=== PATIENT | male | born 1925 | race Caucasian/White ===

== ENCOUNTER 2017-02-18 10:12 | Inpatient (IN) | payer MEDICARE ==
[~2017-02-18] VITALS: Ht 175.3 cm; Wt 75.8 kg
--- NOTE | ~2017-02-18 | EC ---
PATIENT:KRZYSZTOF DAO DATE OF SERVICE: 02/18/17 SEX: M MEDICAL RECORD: [id number] DATE OF : [birth year] LOCATION:[facility] AGE OF PATIENT: 89 ADMISSION DATE: 02/18/17 REFERRING PHYSICIAN: INTERPRETING PHYSICIAN: SAQIB CRAVEN MD ECHOCARDIOGRAM REPORT ECHO CHARGES 4 ECHO COMPLETE CLINICAL DIAGNOSIS: ABNORMAL EKG ECHOCARDIOGRAPHIC MEASUREMENTS (adult normal given) AC root (d.<3.7cm) 3.3 cm LV Septum d (<1.2 cm> 0.9 cm Valve Excursion 1.9 cm LV Septum (systole) 1.7 cm Left Atria (s.<4.0cm> 3.6 cm LVPW d(<1.2cm) 1.0 cm RV (d.<2.3cm) 2.2 cm LVPW (sytole) 1.8 cm LV diastole(<5.6CM) 5.1 cm MV E-F(>70mm/sec) cm LV systole 3.5 cm LVOT Diameter 1.7 cm MV exc.(>10mm) cm Est.ejection fraction (50-75%) % Pericardial Effusion N DOPPLER: LVIT cm/sec A 83.0 cm/sec E 62.0 cm/sec LA cm/sec RVSP 29.0 mmHg LVOT 97.0 cm/sec AOP1/2T m/s Asc. Ao 144 cm/sec RVOT 75.0 cm/sec RA cm/sec PA 97.0 cm/sec AV Gradient Peak 8.3 mmHg AV Mean 3.6 mmHg AV Area 1.4 cm MV Gradient Peak 4.7 mmHg MV Mean 1.5 mmHg MV Area cm COMMENTS: Truck Body Repairer: Dania LAMOE Civil Engineering Project Designer: 4 Dr. Craven TAPE# PACS DATE OF SERVICE: 02/19/2017 PROCEDURE: Transthoracic echocardiogram. FINDINGS: 1. Overall imaging quality is poor, somewhat qualitative than quantitative. 2. The left ventricle is grossly normal. There appears to be left ventricular hypertrophy with inflow characteristics consistent with diastolic dysfunction. 3. Mitral valve is not well visualized, but appears to be grossly normal. 4. Tricuspid valve has moderate tricuspid regurgitation with normal RVSP. ECHOCARDIOGRAM REPORT [id number] KRZYSZTOF DAO 5. The pulmonic valve is not well visualized, but grossly normal. 6. The right atrium and right ventricle appear to be normal. IMPRESSION: The patient has evidence of hypertensive heart disease with preserved LV systolic function. Ejection fraction at least 55%. TRANSINT:[id number] Voice Confirmation ID: [id number] DOCUMENT ID: [id number] 02/28/2017 Edited to correct date of service, dmm. SAQIB CRAVEN MD at 1522 CC: [id number] DICTATION DATE: 02/20/17 0851 PIECE GOODS PACKER: 02/20/17 1247 DIS IN 02/25/17 [id number] [place] [address]
--- NOTE | ~2017-02-18 | CN ---
PATIENT NAME:KRZYSZTOF DAO MEDICAL RECORD: [id number] : [birth year] LOCATION:[facility] ADMIT DATE: 02/18/17 ACCOUNT: [id number] CONSULTING PHYSICIAN: IVANA ABAD DO REFERRING PHYSICIAN: REBEKA MARIN MD DATE OF CONSULTATION: 02/19/2017 HISTORY OF PRESENT ILLNESS: An 89-year-old male presented to the Emergency Room after multiple falls, found to have a left femur fracture, admitted to orthopedics consult for medical management. PAST MEDICAL HISTORY: Significant for hypertension, hypothyroidism. CURRENT MEDICATIONS: Lisinopril 2.5 mg daily and levothyroxine 50 mcg daily. ALLERGIES: No known drug allergies. PRIMARY CARE PHYSICIAN: The patient's primary care physician is in [place]. SOCIAL HISTORY: He lives between [facility]. Lives alone, will need inpatient rehab at some facility if he able to go back home. Limited historian. Some family members present. Does admit frequent falls. Denies any loss of consciousness. REVIEW OF SYSTEMS: CARDIOVASCULAR: Denies chest pain, denies palpitations. PULMONARY: Denies hemoptysis, denies night sweats. GASTROINTESTINAL: Denies hematemesis, hematochezia or melena. GENITOURINARY: Denies dysuria. MUSCULOSKELETAL: Frequent falls, known left femur fracture. PHYSICAL EXAMINATION: VITAL SIGNS: Blood pressure is 109/64, temperature 98.1, heart rate 94, respirations 20, O2 sats 97%. GENERAL: The patient is alert to person, limited historian. The pain appears well controlled. HEENT: Head is normocephalic, atraumatic. Eyes: Pupils equal, round, reactive to light and accommodation. Extraocular muscles intact. Conjunctiva was not injected. Ears: Canals patent, TMs are intact. Nose: Nares patent without drainage. Throat: No erythema, no exudates. NECK: Supple. No lymphadenopathy, no JVD. HEART: Regular rate and rhythm. No S3, S4, no rub. LUNGS: Clear to auscultation bilaterally. Breathing sound labored. ABDOMEN: Soft, nontender. Bowel sounds all 4 quadrants. EXTREMITIES: Present times 4. Appropriate edema with acute femur fracture. NEUROLOGIC: No appreciable focal deficits. Limited exam with pain medications on board. LABORATORY DATA AND DIAGNOSTIC DATA: EKG shows accelerated junctional rhythm, nonspecific ST-T wave changes. Ventricular rate of 91. CBC: White count 7.7, hemoglobin 9.2, hematocrit 26.5, platelets 180. Chemistry shows a sodium of 136, potassium 3.4, chloride 103, bicarbonate 24.1, BUN 27, creatinine 0.8, glucose 121. AST 96, ALT 39, alkaline phosphatase 30. Lactic acid, borderline elevated at 2.7. Influenza A and B negative. Urinalysis; yellow, clear, trace protein, small ketones, 1+ blood, nitrites negative, 5-10 wbc's per high powered CONSULT REPORT [id number] KRZYSZTOF DAO, moderate bacteria. INR is 1.09. CK is elevated at 6593, CK-MB 40, troponin less than 0.017, proBNP is 1116. Left femur x-ray; moderately displaced, minimally angulated, mildly overriding acute fracture, distal left femoral metadiaphysis with soft tissue swelling, bilaterally arthroplasties. CT is basically whole body; head, neck, pelvis, thoracic, no acute pathology. Blood cultures pending. ASSESSMENT AND PLAN: 1. Left femur fracture, anticipate open reduction internal fixation, presently scheduled for 02/20/2017 in a.m. 2. Urinary tract infection. Rocephin 1 gm daily, culture urine. 3. Mild rhabdomyolysis. Cautious IV hydration and monitor. 4. Age deconditioning. We will obtain echocardiogram. Also, consult case management. The patient will need inpatient rehabilitation and possible group home placement after stabilization. 4. Osteopenia. Check vitamin D level. Empiric vitamin D 2000 units daily. TRANSINT:[id number] Voice Confirmation ID: [id number] DOCUMENT ID: [id number] IVANA ABAD DO at 0743 CC: [id number] DICTATION DATE: 02/19/17 0756 DESIGN CONSULTANT: 02/19/17 1110 ADM IN [facility] [address] [place] [address]
[2017-02-18 11:25] LABS: INR 1.09 (0.85-1.17); PROTIME 13.7 SECONDS (11.6-15.0)
[2017-02-18 11:34] LABS: ALBUMIN 3.6 g/dL (3.4-5.0); ALKALINE PHOSPHATASE 44 U/L (46-116); ALT (SGPT) 49 U/L (10-68); BILIRUBIN - TOTAL 4.23 mg/dL (0.2-1.3); CALC OSMOLALITY 279 mosm/kg (275-300); CALCIUM 9.7 mg/dL (8.5-10.1); CARBON DIOXIDE 23.7 mmol/L (21.0-32.0); CHLORIDE - SERUM 98 mmol/L (98-107); CREATININE - SERUM 1.2 mg/dL (0.6-1.3); GLUCOSE 133 mg/dL (74-106); PROTEIN - SERUM 6.9 g/dL (6.4-8.2); SODIUM 137 mmol/L (136-145); UREA NITROGEN 25 mg/dL (7-18); eGFR NON AFRICAN AMERICAN 61 mL/min (90-120)
[2017-02-18 11:46] LABS: PRO BNP 1116 pg/mL (0-450)
[2017-02-18 11:48] LABS: CREATINE KINASE 6593 UL (21-232); TROPONIN-I < 0.017 ng/mL (0.000-0.060)
[2017-02-18 13:19] LABS: APPEARANCE CLEAR (CLEAR); COLOR DK YELLOW (YELLOW)
[2017-02-18 13:20] LABS: KETONE SMALL mg/dL (NEGATIVE); PROTEIN TRACE mg/dL (NEGATIVE); RED CELLS - URINE 0-5 /hpf (0-5)
[2017-02-18 13:21] LABS: BACTERIA MODERATE /hpf (NONE SEEN); EPITHELIAL CELLS 0-5 /hpf (0-5); MUCUS >1+ /lpf (NONE SEEN)
[2017-02-18 13:25] LABS: BILIRUBIN NEGATIVE (NEGATIVE); GLUCOSE NEGATIVE (NEGATIVE); NITRITE NEGATIVE (NEGATIVE); UROBILINOGEN NORMAL (NORMAL)
[2017-02-18 18:05] VITALS: BMI 24.7
[2017-02-18] MEDS ORDERED: LEVOTHYROXINE50 MCG PO (18:25)
[2017-02-18] MEDS ORDERED: LISINOPRIL2.5 MG PO (18:26)
[2017-02-18 19:00] VITALS: BP 144/53
[2017-02-18 22:57] VITALS: BP 119/64
[2017-02-19 00:56] VITALS: BP 109/64
[2017-02-19 04:00] VITALS: BP 105/52
[2017-02-19 05:44] LABS: BASOPHILS 0 % (0-2); EOSINOPHILS 0 % (0-7); HEMATOCRIT 26.5 % (42.0-54.0); HEMOGLOBIN 9.2 g/dL (13.5-17.5); IMMATURE GRANULOCYTES 0.1 % (0-5); LYMPHOCYTES 10.4 % (15-50); MCH 33.8 pg (26.0-34.0); MCHC 34.7 g/dL (31.0-37.0); MCV 97.4 fL (80.0-100.0); MEAN PLATELET VOLUME 9.7 fL (7.4-10.4); NEUTROPHILS 74.5 % (40-80); PLATELET COUNT 180 10x3/uL (130-400); RBC 2.72 10x6/uL (4.20-6.10); RDW 13.2 % (11.5-14.5); WBC 7.7 10x3/uL (4.8-10.8)
[2017-02-19 06:37] LABS: ALBUMIN 2.7 g/dL (3.4-5.0); ALKALINE PHOSPHATASE 30 U/L (46-116); ALT (SGPT) 39 U/L (10-68); BILIRUBIN - TOTAL 2.61 mg/dL (0.2-1.3); CALC OSMOLALITY 277 mosm/kg (275-300); CALCIUM 8.5 mg/dL (8.5-10.1); CARBON DIOXIDE 24.1 mmol/L (21.0-32.0); CHLORIDE - SERUM 103 mmol/L (98-107); GLUCOSE 121 mg/dL (74-106); POTASSIUM - SERUM 3.4 mmol/L (3.5-5.1); PROTEIN - SERUM 5.5 g/dL (6.4-8.2); SODIUM 136 mmol/L (136-145); UREA NITROGEN 27 mg/dL (7-18)
[2017-02-19 06:41] LABS: CREATININE - SERUM 0.8 mg/dL (0.6-1.3); eGFR NON AFRICAN AMERICAN > 90 mL/min (90-120)
[2017-02-19 08:16] VITALS: BP 105/57
[2017-02-19 12:45] VITALS: BP 144/55
[2017-02-19 12:54] VITALS: Ht 175.3 cm; Wt 75.8 kg
[2017-02-19 16:45] VITALS: BP 107/53
[2017-02-19 20:00] VITALS: BP 91/49
[2017-02-20] VITALS (7 sets, daily range): BP systolic 99–130; BP diastolic 45–79
[2017-02-20 05:12] LABS: BASOPHILS 0 % (0-2); EOSINOPHILS 0.1 % (0-7); HEMATOCRIT 23.3 % (42.0-54.0); HEMOGLOBIN 7.8 g/dL (13.5-17.5); IMMATURE GRANULOCYTES 0.1 % (0-5); LYMPHOCYTES 13.6 % (15-50); MCH 33.3 pg (26.0-34.0); MCHC 33.5 g/dL (31.0-37.0); MEAN PLATELET VOLUME 9.4 fL (7.4-10.4); MONOCYTES 14.1 % (2-11); NEUTROPHILS 72.1 % (40-80); PLATELET COUNT 191 10x3/uL (130-400); RBC 2.34 10x6/uL (4.20-6.10); RDW 13.4 % (11.5-14.5); WBC 7.4 10x3/uL (4.8-10.8)
[2017-02-20 05:14] LABS: MCV 99.6 fL (80.0-100.0)
[2017-02-20 05:49] LABS: CALC OSMOLALITY 290 mosm/kg (275-300); CALCIUM 8.2 mg/dL (8.5-10.1); CARBON DIOXIDE 26.6 mmol/L (21.0-32.0); CHLORIDE - SERUM 108 mmol/L (98-107); CREATININE - SERUM 0.7 mg/dL (0.6-1.3); GLUCOSE 114 mg/dL (74-106); MAGNESIUM - SERUM 1.6 mg/dL (1.8-2.4); POTASSIUM - SERUM 3.6 mmol/L (3.5-5.1); SODIUM 144 mmol/L (136-145); UREA NITROGEN 22 mg/dL (7-18); eGFR NON AFRICAN AMERICAN > 90 mL/min (90-120)
[2017-02-20 05:53] LABS: CREATINE KINASE 1222 UL (21-232)
[2017-02-20 05:54] LABS: CKMB 2.6 U/L (0.0-3.6)
[2017-02-20 07:43] LABS: APTT 25.8 SECONDS (22.8-39.4); INR 1.05 (0.85-1.17); PROTIME 13.3 SECONDS (11.6-15.0)
[2017-02-21] VITALS: BP 120/55
[2017-02-21 03:54] LABS: BASOPHILS 0 % (0-2); EOSINOPHILS 0 % (0-7); HEMATOCRIT 24.8 % (42.0-54.0); HEMOGLOBIN 8.2 g/dL (13.5-17.5); IMMATURE GRANULOCYTES 0.1 % (0-5); LYMPHOCYTES 5.6 % (15-50); MCH 32.4 pg (26.0-34.0); MCHC 33.1 g/dL (31.0-37.0); MEAN PLATELET VOLUME 9.1 fL (7.4-10.4); MONOCYTES 20.5 % (2-11); NEUTROPHILS 73.8 % (40-80); PLATELET COUNT 185 10x3/uL (130-400); RBC 2.53 10x6/uL (4.20-6.10); RDW 15.3 % (11.5-14.5); WBC 6.9 10x3/uL (4.8-10.8)
[2017-02-21 04:09] LABS: APTT 26.4 SECONDS (22.8-39.4); INR 1.13 (0.85-1.17); PROTIME 14.1 SECONDS (11.6-15.0)
[2017-02-21 04:36] LABS: CALC OSMOLALITY 286 mosm/kg (275-300); CALCIUM 7.9 mg/dL (8.5-10.1); CARBON DIOXIDE 26.3 mmol/L (21.0-32.0); CHLORIDE - SERUM 108 mmol/L (98-107); CREATINE KINASE 1311 UL (21-232); CREATININE - SERUM 0.7 mg/dL (0.6-1.3); GLUCOSE 110 mg/dL (74-106); POTASSIUM - SERUM 3.6 mmol/L (3.5-5.1); SODIUM 143 mmol/L (136-145); UREA NITROGEN 16 mg/dL (7-18); eGFR NON AFRICAN AMERICAN > 90 mL/min (90-120)
[2017-02-21 08:17] VITALS: BP 107/46
[2017-02-21 11:47] VITALS: BP 109/51
[2017-02-21 17:21] VITALS: BP 111/54
[2017-02-21 20:00] VITALS: BP 99/46
[2017-02-22] VITALS (7 sets, daily range): BP systolic 103–119; BP diastolic 47–60
[2017-02-22 04:55] LABS: BASOPHILS 0 % (0-2); EOSINOPHILS 0.2 % (0-7); HEMATOCRIT 27.4 % (42.0-54.0); HEMOGLOBIN 9.1 g/dL (13.5-17.5); IMMATURE GRANULOCYTES 0.2 % (0-5); LYMPHOCYTES 8.7 % (15-50); MCH 31.9 pg (26.0-34.0); MCHC 33.2 g/dL (31.0-37.0); MCV 96.1 fL (80.0-100.0); MEAN PLATELET VOLUME 9.4 fL (7.4-10.4); MONOCYTES 18.3 % (2-11); NEUTROPHILS 72.6 % (40-80); PLATELET COUNT 195 10x3/uL (130-400); RBC 2.85 10x6/uL (4.20-6.10); RDW 16.4 % (11.5-14.5); WBC 8.5 10x3/uL (4.8-10.8)
[2017-02-22 05:12] LABS: CALC OSMOLALITY 276 mosm/kg (275-300); CALCIUM 7.9 mg/dL (8.5-10.1); CARBON DIOXIDE 25.9 mmol/L (21.0-32.0); CHLORIDE - SERUM 103 mmol/L (98-107); CREATININE - SERUM 0.7 mg/dL (0.6-1.3); GLUCOSE 92 mg/dL (74-106); POTASSIUM - SERUM 3.5 mmol/L (3.5-5.1); SODIUM 138 mmol/L (136-145); UREA NITROGEN 14 mg/dL (7-18); eGFR NON AFRICAN AMERICAN > 90 mL/min (90-120)
[2017-02-23 04:00] VITALS: BP 109/55
[2017-02-23 04:41] LABS: BASOPHILS 0 % (0-2); HEMATOCRIT 26.4 % (42.0-54.0); HEMOGLOBIN 8.8 g/dL (13.5-17.5); IMMATURE GRANULOCYTES 0.5 % (0-5); LYMPHOCYTES 7.9 % (15-50); MCH 32.1 pg (26.0-34.0); MCHC 33.3 g/dL (31.0-37.0); MCV 96.4 fL (80.0-100.0); MEAN PLATELET VOLUME 9.2 fL (7.4-10.4); MONOCYTES 16.9 % (2-11); NEUTROPHILS 73.7 % (40-80); PLATELET COUNT 231 10x3/uL (130-400); RBC 2.74 10x6/uL (4.20-6.10); RDW 15.4 % (11.5-14.5); WBC 7.8 10x3/uL (4.8-10.8)
[2017-02-23 04:56] LABS: CALC OSMOLALITY 278 mosm/kg (275-300); CALCIUM 7.8 mg/dL (8.5-10.1); CARBON DIOXIDE 25.1 mmol/L (21.0-32.0); CHLORIDE - SERUM 105 mmol/L (98-107); CREATININE - SERUM 0.6 mg/dL (0.6-1.3); GLUCOSE 100 mg/dL (74-106); POTASSIUM - SERUM 3.6 mmol/L (3.5-5.1); SODIUM 139 mmol/L (136-145); UREA NITROGEN 14 mg/dL (7-18); eGFR NON AFRICAN AMERICAN > 90 mL/min (90-120)
[2017-02-23 08:44] VITALS: BP 110/52
[2017-02-23 16:36] VITALS: BP 121/51
[2017-02-23 20:00] VITALS: BP 107/56
[2017-02-24] VITALS: BP 136/58
[2017-02-24 03:56] LABS: BASOPHILS 0 % (0-2); HEMATOCRIT 26.5 % (42.0-54.0); HEMOGLOBIN 8.6 g/dL (13.5-17.5); IMMATURE GRANULOCYTES 0.8 % (0-5); LYMPHOCYTES 12.7 % (15-50); MCH 31.6 pg (26.0-34.0); MCHC 32.5 g/dL (31.0-37.0); MCV 97.4 fL (80.0-100.0); MONOCYTES 18.7 % (2-11); NEUTROPHILS 64.8 % (40-80); PLATELET COUNT 266 10x3/uL (130-400); RBC 2.72 10x6/uL (4.20-6.10); RDW 14.8 % (11.5-14.5); WBC 6.1 10x3/uL (4.8-10.8)
[2017-02-24 04:13] LABS: CALC OSMOLALITY 278 mosm/kg (275-300); CALCIUM 8.1 mg/dL (8.5-10.1); CARBON DIOXIDE 30.2 mmol/L (21.0-32.0); CHLORIDE - SERUM 104 mmol/L (98-107); CREATININE - SERUM 0.6 mg/dL (0.6-1.3); GLUCOSE 103 mg/dL (74-106); POTASSIUM - SERUM 3.3 mmol/L (3.5-5.1); SODIUM 139 mmol/L (136-145); UREA NITROGEN 15 mg/dL (7-18); eGFR NON AFRICAN AMERICAN > 90 mL/min (90-120)
[2017-02-24 06:00] VITALS: BP 117/54
[2017-02-24] MEDS ORDERED: ELIQUIS2.5 MG PO (07:45)
[2017-02-24] MEDS ORDERED: MACROBID100 MG PO (07:45)
[2017-02-24] MEDS ORDERED: HYDROCODONE-APA1 TAB PO (07:45)
[2017-02-24] MEDS ORDERED: Vitamin D PO (07:46)
[2017-02-24 08:04] VITALS: BP 110/51
[2017-02-24 12:07] VITALS: BP 102/53
[2017-02-24 16:55] VITALS: BP 124/64
[2017-02-24 22:05] VITALS: BP 122/64
[2017-02-25 01:44] VITALS: BP 112/59
[2017-02-25 04:00] VITALS: BP 113/69
[2017-02-25 08:53] VITALS: BP 93/55
[2017-02-25 13:34] VITALS: BP 101/47
[2017-02-25 16:53] VITALS: BP 98/45
== END 2017-02-25 17:00 | DRG 956 ==
LOC: D.ER 10:12 → D.MS 16:49
PROVIDERS: Family Medicine; Nurse Practitioner Family; Orthopaedic Surgery
PROC: 0QSC04Z Reposition Left Lower Femur with Internal Fixation Device, Open Approach (ICD-10-PCS; principal; 2017-02-20 14:15)
DX: S72.492A Other fracture of lower end of left femur, initial encounter for closed fracture (principal); T79.6XXA Traumatic ischemia of muscle, initial encounter; N39.0 Urinary tract infection, site not specified; D62 Acute posthemorrhagic anemia; W19.XXXA Unspecified fall, initial encounter; I10 Essential (primary) hypertension; E03.9 Hypothyroidism, unspecified; M85.80 Other specified disorders of bone density and structure, unspecified site; K21.9 Gastro-esophageal reflux disease without esophagitis